=== PATIENT | male | born 1940 | race Caucasian/White ===

== ENCOUNTER → 2016-07-28 | Outpatient (REF) | payer MEDICARE ==
[2016-07-28 12:50] LABS: ALBUMIN 3.7 GM/DL (3.2-5.2); ALBUMIN/GLOBULIN RATIO 1.12 (1.00-1.93); ALKALINE PHOSPHATASE 60 U/L (45-117); ALT/SGPT 31 U/L (12-78); ANION GAP 9 MEQ/L (8-16); AST/SGOT 16 U/L (15-37); BILIRUBIN,TOTAL 0.7 MG/DL (0.2-1.0); BLOOD UREA NITROGEN 29 MG/DL (7-18); CALCIUM LEVEL 8.7 MG/DL (8.8-10.2); CARBON DIOXIDE LEVEL 29 MEQ/L (21-32); CHLORIDE LEVEL 102 MEQ/L (98-107); CHOLESTEROL LEVEL 101 MG/DL (<200); CREATININE FOR GFR 1.13 MG/DL (0.70-1.30); GLOMERULAR FILTRATION RATE > 60.0 (>42); GLUCOSE, FASTING 124 MG/DL (83-110); POTASSIUM SERUM 4.6 MEQ/L (3.5-5.1); SODIUM LEVEL 140 MEQ/L (136-145); TRIGLYCERIDES LEVEL 303 MG/DL (<150)
[2016-07-28 13:02] LABS: BASO # 0.1 K/mm3 (0.0-0.2); BASO % 1.6 % (0.0-1.0); EOS # 0.2 K/mm3 (0.0-0.50); LARGE UNSTAINED CELL # 0.1 K/mm3 (0.0-0.4); LARGE UNSTAINED CELL % 2.5 % (0.0-4.0); LYMPH # 1.5 K/mm3 (1.5-4.5); LYMPH % 27.3 % (24.0-44.0); MEAN CORPUSCULAR HGB CONC 35.6 g/dl (32.0-36.5); MEAN CORPUSCULAR VOLUME 87.2 fl (80.0-96.0); MONO # 0.6 K/mm3 (0.0-0.8); MONO % 11.1 % (0.0-5.0); NEUTROPHILS # 2.7 K/mm3 (1.8-7.7); NEUTROPHILS % 53.5 % (36.0-66.0); PLATELET COUNT, AUTOMATED 159 k/mm3 (150-450); RED CELL DISTRIBUTION WIDTH 12.7 % (11.5-14.5)
== END ==
LOC: M SFHCPLAZ 09:24
PROVIDERS: ATTEND Physician Assistant
DX: E11.9 Type 2 diabetes mellitus without complications (principal); I10 Essential (primary) hypertension; E78.5 Hyperlipidemia, unspecified

== ENCOUNTER 2016-09-13 20:01 | Emergency (ER) | payer MEDICARE ==
[~2016-09-13] VITALS: Ht 170.2 cm; Wt 97.7 kg
[2016-09-13] MEDS ORDERED: CRES20TA PO (20:13)
[2016-09-13] MEDS ORDERED: LISI40TAB PO (20:13)
[2016-09-13] MEDS ORDERED: INSUDET SC (20:13)
[2016-09-13] MEDS ORDERED: METF500T13 PO (20:13)
[2016-09-13] MEDS ORDERED: CARV6.25 PO (20:13)
[2016-09-13] MEDS ORDERED: OMEG100011 PO (20:13)
[2016-09-13] MEDS ORDERED: ASPI1TAB PO (20:13)
[2016-09-13] MEDS ORDERED: INSUR SC (20:13)
[2016-09-13] MEDS ORDERED: KEFL500C17 PO (21:27)
[2016-09-13 21:43] VITALS: BP 137/71
== END 2016-09-13 22:06 | disposition home or self-care (01) ==
LOC: M ED 20:01
DX: L02.215 Cutaneous abscess of perineum (principal); E11.9 Type 2 diabetes mellitus without complications; I10 Essential (primary) hypertension

== ENCOUNTER → 2016-10-23 | Outpatient (REF) | payer MEDICARE ==
[~2016-10-23] MED LIST: ASPI1TAB PO; CARV6.25 PO; CRES20TA PO; INSUDET SC; INSUR SC; KEFL500C17 PO; LISI40TAB PO; METF500T13 PO; OMEG100011 PO
[2016-10-23 16:22] LABS: BASO % 1.1 % (0.0-1.0); EOS # 0.2 K/mm3 (0.0-0.50); EOS % 4.5 % (0.0-3.0); LARGE UNSTAINED CELL # 0.1 K/mm3 (0.0-0.4); LARGE UNSTAINED CELL % 2.5 % (0.0-4.0); LYMPH # 1.5 K/mm3 (1.5-4.5); LYMPH % 29.8 % (24.0-44.0); MEAN CORPUSCULAR HEMOGLOBIN 32.1 pg (27.0-33.0); MEAN CORPUSCULAR HGB CONC 36.2 g/dl (32.0-36.5); MEAN CORPUSCULAR VOLUME 88.6 fl (80.0-96.0); MONO # 0.6 K/mm3 (0.0-0.8); MONO % 12.1 % (0.0-5.0); NEUTROPHILS # 2.3 K/mm3 (1.8-7.7); PLATELET COUNT, AUTOMATED 170 k/mm3 (150-450); RED CELL DISTRIBUTION WIDTH 12.7 % (11.5-14.5); WHITE BLOOD COUNT 4.6 K/mm3 (4.0-10.0)
[2016-10-23 16:28] LABS: ALBUMIN 3.9 GM/DL (3.2-5.2); ALBUMIN/GLOBULIN RATIO 1.22 (1.00-1.93); ALKALINE PHOSPHATASE 53 U/L (45-117); ALT/SGPT 37 U/L (12-78); ANION GAP 8 MEQ/L (8-16); AST/SGOT 20 U/L (15-37); BILIRUBIN,TOTAL 0.6 MG/DL (0.2-1.0); BLOOD UREA NITROGEN 24 MG/DL (7-18); CARBON DIOXIDE LEVEL 30 MEQ/L (21-32); CHLORIDE LEVEL 104 MEQ/L (98-107); CHOLESTEROL LEVEL 97 MG/DL (<200); CREATININE FOR GFR 1.01 MG/DL (0.70-1.30); GLOMERULAR FILTRATION RATE > 60.0 (>42); GLUCOSE, FASTING 125 MG/DL (83-110); POTASSIUM SERUM 4.4 MEQ/L (3.5-5.1); SODIUM LEVEL 142 MEQ/L (136-145); TOTAL PROTEIN 7.1 GM/DL (6.4-8.2); TRIGLYCERIDES LEVEL 189 MG/DL (<150)
== END ==
LOC: M SFHCSACK 09:37
PROVIDERS: ATTEND Physician Assistant
DX: I10 Essential (primary) hypertension (principal); E11.9 Type 2 diabetes mellitus without complications; E78.5 Hyperlipidemia, unspecified; Z13.21 Encounter for screening for nutritional disorder; E55.9 Vitamin D deficiency, unspecified; Z79.82 Long term (current) use of aspirin; Z79.899 Other long term (current) drug therapy; Z79.4 Long term (current) use of insulin

== ENCOUNTER → 2017-08-01 | Outpatient (REF) | payer MEDICARE ==
[2017-08-01 12:41] LABS: BASO # 0.1 10^3/uL (0.0-0.2); EOS # 0.2 10^3/uL (0.0-0.50); EOS % 3.3 % (0.0-3.0); HEMATOCRIT 39.6 % (42.0-52.0); HEMOGLOBIN 13.4 g/dl (13.5-17.5); IMMATURE GRANULOCYTE % 0.4 % (0-3.0); LYMPH # 1.4 10^3/uL (1.5-4.5); LYMPH % 26.1 % (24.0-44.0); MEAN CORPUSCULAR HGB CONC 33.8 g/dl (32.0-36.5); MEAN CORPUSCULAR VOLUME 88.8 fl (80.0-96.0); MONO # 0.7 10^3/uL (0.0-0.8); MONO % 13.9 % (0.0-5.0); NEUTROPHILS # 2.9 10^3/uL (1.8-7.7); NEUTROPHILS % 55.3 % (36.0-66.0); PLATELET COUNT, AUTOMATED 150 10^3/uL (150-450); RED BLOOD COUNT 4.46 10^6/uL (4.30-6.10); RED CELL DISTRIBUTION WIDTH 12.7 % (11.5-14.5); WHITE BLOOD COUNT 5.2 10^3/uL (4.0-10.0)
[2017-08-01 12:48] LABS: ALBUMIN 3.6 GM/DL (3.2-5.2); ALBUMIN/GLOBULIN RATIO 1.16 (1.00-1.93); ALKALINE PHOSPHATASE 59 U/L (45-117); ALT/SGPT 31 U/L (12-78); ANION GAP 8 MEQ/L (8-16); AST/SGOT 17 U/L (7-37); BILIRUBIN,TOTAL 0.8 MG/DL (0.2-1.0); BLOOD UREA NITROGEN 21 MG/DL (7-18); CALCIUM LEVEL 8.6 MG/DL (8.8-10.2); CARBON DIOXIDE LEVEL 28 MEQ/L (21-32); CHLORIDE LEVEL 105 MEQ/L (98-107); CHOLESTEROL LEVEL 94 MG/DL (<200); CHOLESTEROL RISK RATIO 2.764 (<5); CREATININE FOR GFR 0.99 MG/DL (0.70-1.30); GLOMERULAR FILTRATION RATE > 60.0 (>42); GLUCOSE, FASTING 199 MG/DL (70-100); HDL CHOLESTEROL 34 MG/DL (>40); LDL CHOLESTEROL 4.2 MG/DL (<100); NON-HDL-C 60 MG/DL; POTASSIUM SERUM 4.5 MEQ/L (3.5-5.1); SODIUM LEVEL 141 MEQ/L (136-145); TOTAL PROTEIN 6.7 GM/DL (6.4-8.2); TRIGLYCERIDES LEVEL 279 MG/DL (<150)
[2017-08-01 12:59] LABS: ESTIMATED AVERAGE GLUCOSE 192 MG/DL (60-110); HEMOGLOBIN A1c 8.3 %
[2017-08-01 13:20] LABS: TOTAL 25(OH) VITAMIN D 38.9 NG/ML (30.0-100.0)
[2017-08-01 13:26] LABS: MAU/CREAT RATIO 79.6 MCG/MG (0.0-30.0)
== END ==
LOC: M SFHCADAM 09:24
DX: D64.9 Anemia, unspecified (principal); E11.9 Type 2 diabetes mellitus without complications; E78.5 Hyperlipidemia, unspecified; E55.9 Vitamin D deficiency, unspecified
CPT/HCPCS: 80053

== ENCOUNTER → 2018-05-31 | Outpatient (REF) | payer MEDICARE ==
[~2018-05-31] MED LIST changes: -ASPI1TAB PO; +ASPI81TA26 PO; -CRES20TA PO; +CRES20TA2 PO; +LISI40TA PO; -LISI40TAB PO
[2018-05-31 14:25] LABS: BASO # 0.1 10^3/uL (0.0-0.2); BASO % 1.2 % (0.0-1.0); EOS # 0.2 10^3/uL (0.0-0.50); EOS % 3.4 % (0.0-3.0); HEMATOCRIT 43.9 % (42.0-52.0); HEMOGLOBIN 14.3 g/dl (13.5-17.5); LYMPH # 1.5 10^3/uL (1.5-4.5); LYMPH % 23.3 % (24.0-44.0); MEAN CORPUSCULAR HEMOGLOBIN 28.6 pg (27.0-33.0); MEAN CORPUSCULAR HGB CONC 32.6 g/dl (32.0-36.5); MEAN CORPUSCULAR VOLUME 87.8 fl (80.0-96.0); MONO # 0.9 10^3/uL (0.0-0.8); MONO % 13.9 % (0.0-5.0); NEUTROPHILS # 3.8 10^3/uL (1.8-7.7); PLATELET COUNT, AUTOMATED 170 10^3/uL (150-450); WHITE BLOOD COUNT 6.5 10^3/uL (4.0-10.0)
[2018-05-31 14:53] LABS: ALBUMIN 4.1 GM/DL (3.2-5.2); ALT/SGPT 28 U/L (12-78); BILIRUBIN,TOTAL 0.8 MG/DL (0.2-1.0); BLOOD UREA NITROGEN 26 MG/DL (7-18); CARBON DIOXIDE LEVEL 29 MEQ/L (21-32); CHLORIDE LEVEL 104 MEQ/L (98-107); CHOLESTEROL LEVEL 128 MG/DL (<200); CHOLESTEROL RISK RATIO 3.555 (<5); CREATININE FOR GFR 1.14 MG/DL (0.70-1.30); GLOMERULAR FILTRATION RATE > 60.0 (>42); GLUCOSE, FASTING 146 MG/DL (70-100); HDL CHOLESTEROL 36 MG/DL (>40); LDL CHOLESTEROL 45 MG/DL (<100); NON-HDL-C 92 MG/DL; POTASSIUM SERUM 4.5 MEQ/L (3.5-5.1); SODIUM LEVEL 140 MEQ/L (136-145); TOTAL PROTEIN 7.2 GM/DL (6.4-8.2); TRIGLYCERIDES LEVEL 233 MG/DL (<150)
[2018-05-31 14:59] LABS: TOTAL 25(OH) VITAMIN D 52.2 NG/ML (30.0-100.0)
[2018-05-31 15:16] LABS: HEMOGLOBIN A1c 8.3 %
== END ==
LOC: M SFHCSACK 09:09
PROVIDERS: ATTEND Physician Assistant
DX: D64.9 Anemia, unspecified (principal); E78.5 Hyperlipidemia, unspecified; E11.9 Type 2 diabetes mellitus without complications; E55.9 Vitamin D deficiency, unspecified; E66.9 Obesity, unspecified; Z68.36 Body mass index [BMI] 36.0-36.9, adult

== ENCOUNTER → 2018-06-05 | Outpatient (CLI) | payer MEDICARE ==
--- NOTE | 2018-06-05 15:13 | REP ---
BILATERAL HIPS, AP PELVIS, FIVE VIEWS: HISTORY: Hip pain. RIGHT HIP: There is no acute fracture or dislocation. There is moderate narrowing of the joint space with associated sclerosis and osteophyte formation. IMPRESSION: Degenerative change as described above. LEFT HIP: The patient is status post left total hip replacement. There is no acute fracture or dislocation. IMPRESSION: The patient is status post left total hip replacement. Electronically Signed by Dayton Alas MD 06/05/2018 03:26 P
--- NOTE | 2018-06-05 15:13 | REP ---
LUMBAR SPINE, FIVE VIEWS: HISTORY: Back pain. There is no acute fracture. The lumbar intervertebral discs are decreased in height consistent with disc degeneration. Osteophytes are present throughout the lumbar spine. There is narrowing of the right L4-5 and L5-S1 facet joints and left L5-S1 facet joint. There is sclerosis at the right L4-5 facet joint. There are 3 mm of grade 1 spondylolisthesis of L4 on L5. IMPRESSION: Degenerative change as described above. Electronically Signed by Dayton Alas MD 06/05/2018 03:26 P
== END ==
LOC: M ADAMS 13:44
PROVIDERS: ATTEND Physician Assistant
DX: M25.78 Osteophyte, vertebrae (principal); M51.36 Other intervertebral disc degeneration, lumbar region; M51.37 Other intervertebral disc degeneration, lumbosacral region; M43.16 Spondylolisthesis, lumbar region; M25.751 Osteophyte, right hip; M16.11 Unilateral primary osteoarthritis, right hip; Z96.642 Presence of left artificial hip joint

== ENCOUNTER 2018-09-24 20:22 | Emergency (ER) | payer MEDICARE ==
[~2018-09-24] VITALS: Ht 167.6 cm; Wt 105.0 kg
[2018-09-24] MEDS ORDERED: ACETAMINOPHEN TAB 650MG DOSE (2X325MG) PO ONE (20:45)
[2018-09-24 21:36] LABS: BASO % 0.3 % (0.0-1.0); EOS # 0.3 10^3/uL (0.0-0.50); EOS % 4.1 % (0.0-3.0); HEMOGLOBIN 15.4 g/dl (13.5-17.5); LYMPH # 0.4 10^3/uL (1.5-4.5); LYMPH % 6.1 % (24.0-44.0); MEAN CORPUSCULAR HEMOGLOBIN 30.4 pg (27.0-33.0); MEAN CORPUSCULAR HGB CONC 34.2 g/dl (32.0-36.5); MEAN CORPUSCULAR VOLUME 88.8 fl (80.0-96.0); NEUTROPHILS # 4.5 10^3/uL (1.8-7.7); NEUTROPHILS % 73.2 % (36.0-66.0); PLATELET COUNT, AUTOMATED 147 10^3/uL (150-450); RED BLOOD COUNT 5.07 10^6/uL (4.30-6.10); WHITE BLOOD COUNT 6.1 10^3/uL (4.0-10.0)
[2018-09-24 22:09] LABS: BILIRUBIN,DIRECT 0.2 MG/DL (0.0-0.2); BILIRUBIN,TOTAL 0.5 MG/DL (0.2-1.0); CALCIUM LEVEL 8.8 MG/DL (8.8-10.2); CK-MB VALUE MASS 1.7 NG/ML (<3.6); CREATININE FOR GFR 1.95 MG/DL (0.70-1.30); GLOMERULAR FILTRATION RATE 35.8 (>42); MB/CK RELATIVE INDEX 0.43 (< OR =4); POTASSIUM SERUM 4.6 MEQ/L (3.5-5.1); THYROID STIMULATING HORMONE 1.88 uIU/ML (0.358-3.740); TOTAL PROTEIN 7.8 GM/DL (6.4-8.2); TROPONIN I 0.02 NG/ML (< 0.10)
[2018-09-24] MEDS ORDERED: NS 1,000 ML IV ONE (23:00)
[2018-09-24] MEDS ORDERED: AZITHROMYCIN 250 MG TAB PO ONE (23:00)
[2018-09-24] MEDS ORDERED: cefTRIAXone SOD 1 GM in D5W MINI-BAG PLUS 50 ML IV ONE (23:00)
[2018-09-24] MEDS ORDERED: SULF1TAB93 PO (23:40)
[2018-09-25] MEDS ORDERED: DOXY100C37 PO (00:15)
[2018-09-25 01:00] VITALS: BP 160/79
--- NOTE | 2018-09-25 08:14 | REP ---
The PA and lateral chest: There are no comparisons. The right hilus appears enlarged. Lung mantilla otherwise clear. Cardiac size is normal. The left hilus, mediastinum, skeletal structures are unremarkable. Impression: Enlarged right hilus. Recommend CT follow-up. Otherwise, negative PA and lateral chest. Electronically Signed by Donovan Woodall MD 09/25/2018 08:06 A
--- NOTE | 2018-09-25 10:39 | ED PDOC ---
Post-Departure Follow-Up tray ruiz faxed formal report of cxr for fu Avi Mai MD Sep 25, 2018 10:39
--- NOTE | 2018-09-26 13:21 | ECGEPIP ---
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
== END 2018-09-25 01:23 | disposition home or self-care (01) ==
LOC: M ED 20:22
DX: J18.9 Pneumonia, unspecified organism (principal); I10 Essential (primary) hypertension; E11.9 Type 2 diabetes mellitus without complications; Z96.649 Presence of unspecified artificial hip joint; Z87.891 Personal history of nicotine dependence; Z79.899 Other long term (current) drug therapy; Z79.4 Long term (current) use of insulin; Z79.2 Long term (current) use of antibiotics
CPT/HCPCS: 71046; 80048; 80076; 81001; 82550; 82553; 83605; 84443; 84484; 85025; 87040; 93005; 96365; 96366; 99284; J0696

== ENCOUNTER 2018-09-26 15:06 | Emergency (ER) | payer MEDICARE ==
[~2018-09-26] VITALS: Ht 170.2 cm; Wt 103.5 kg
[~2018-09-26 15:06] MED LIST changes: +DOXY100C37 PO; +SULF1TAB93 PO
[2018-09-26] MEDS ORDERED: diphenhydrAMINE INJ 50MG/ML VIAL (J1200) IV STA (17:42)
[2018-09-26] MEDS ORDERED: NS 1,000 ML IV ONE ×2 (17:45→20:30)
[2018-09-26] MEDS ORDERED: ACETAMINOPHEN 325 MG TAB PO ONE (18:00)
[2018-09-26 18:25] LABS: BASO % 0.4 % (0.0-1.0); EOS # 0.3 10^3/uL (0.0-0.50); EOS % 5.3 % (0.0-3.0); HEMOGLOBIN 14.9 g/dl (13.5-17.5); LYMPH # 0.6 10^3/uL (1.5-4.5); LYMPH % 10.2 % (24.0-44.0); MEAN CORPUSCULAR HEMOGLOBIN 30.9 pg (27.0-33.0); MEAN CORPUSCULAR HGB CONC 34.7 g/dl (32.0-36.5); MEAN CORPUSCULAR VOLUME 89.2 fl (80.0-96.0); MONO # 0.6 10^3/uL (0.0-0.8); MONO % 11.2 % (0.0-5.0); NEUTROPHILS # 4.1 10^3/uL (1.8-7.7); NEUTROPHILS % 72.5 % (36.0-66.0); PLATELET COUNT, AUTOMATED 107 10^3/uL (150-450); RED BLOOD COUNT 4.82 10^6/uL (4.30-6.10); WHITE BLOOD COUNT 5.6 10^3/uL (4.0-10.0)
[2018-09-26 18:41] LABS: PROTHROMBIN TIME 12.9 SECONDS (11.8-14.0)
[2018-09-26 18:55] LABS: ALBUMIN 3.6 GM/DL (3.2-5.2); BILIRUBIN,DIRECT 0.2 MG/DL (0.0-0.2); BILIRUBIN,TOTAL 0.4 MG/DL (0.2-1.0); C REACTIVE PROTEIN QUANTITATIV 8.99 MG/DL (0.00-0.30); CREATININE FOR GFR 1.72 MG/DL (0.70-1.30); GLOMERULAR FILTRATION RATE 41.4 (>42); POTASSIUM SERUM 4.1 MEQ/L (3.5-5.1); TOTAL PROTEIN 7.6 GM/DL (6.4-8.2)
--- NOTE | 2018-09-26 18:58 | REPVR ---
EXAM: CT Chest Without Contrast EXAM DATE/TIME: 09/26/2018 6:15 PM CLINICAL HISTORY: 78 years old, male; Abnormal findings; Abnormal radiologic exam of lung or chest; Additional info: ? Pneumonia on cxr, worsening fevers TECHNIQUE: Imaging protocol: Computed tomography images of the chest without contrast. 3D rendering: MIP reconstructed images were created and reviewed. Radiation optimization: All CT scans at this facility use at least one of these dose optimization techniques: automated exposure control; mA and/or kV adjustment per patient size (includes targeted exams where dose is matched to clinical indication); or iterative reconstruction. COMPARISON: CR Chest, 2 view PA, Lat 09/24/2018 10:26 PM FINDINGS: Lungs: Unremarkable. No consolidation. No masses. Pleural space: Unremarkable. No pneumothorax. No pleural effusion. Heart: Unremarkable. No cardiomegaly. No pericardial effusion. Pulmonary arteries: Prominence of the pulmonary hilar regions related to prominent and lobar pulmonary arteries. Aorta: The aorta demonstrates mild atherosclerotic calcification. Lymph nodes: Small mediastinal lymph nodes likely postinflammatory. Bones/joints: Degenerative arthropathy both glenohumeral joints.The spine demonstrates mild degenerative changes. Soft tissues: Unremarkable. IMPRESSION: No acute findings. Electronically signed by: Daren Terrazas On 09/26/2018 18:58:00 PM
[2018-09-26 19:02] LABS: ERYTHROCYTE SEDIMENTATION RATE 39 mm/hr (0-20)
[2018-09-26] MEDS ORDERED: IBUPROFEN 600 MG TAB PO ONE (20:30)
[2018-09-26] MEDS ORDERED: methylPREDNISolone INJ 125 MG/2 ML VIAL (J2930) IV ONE (21:30)
[2018-09-26 22:12] VITALS: BP 135/67
== END 2018-09-26 22:14 | disposition home or self-care (01) ==
LOC: M ED 15:06
DX: E86.0 Dehydration (principal); R21 Rash and other nonspecific skin eruption; N17.9 Acute kidney failure, unspecified; Z79.4 Long term (current) use of insulin; Z79.899 Other long term (current) drug therapy
CPT/HCPCS: 71250; 80048; 80076; 81001; 85025; 85610; 85652; 85730; 86140; 96374; 96375; 99284; J1200; J2930

== ENCOUNTER → 2018-09-30 | Outpatient (REF) | payer MEDICARE ==
[2018-09-30 13:30] LABS: BASO # 0.1 10^3/uL (0.0-0.2); EOS # 0.4 10^3/uL (0.0-0.50); EOS % 6.6 % (0.0-3.0); HEMATOCRIT 37.3 % (42.0-52.0); HEMOGLOBIN 12.7 g/dl (13.5-17.5); LYMPH # 1.4 10^3/uL (1.5-4.5); MEAN CORPUSCULAR HEMOGLOBIN 30.5 pg (27.0-33.0); MEAN CORPUSCULAR VOLUME 89.7 fl (80.0-96.0); MONO # 0.6 10^3/uL (0.0-0.8); MONO % 9.8 % (0.0-5.0); NEUTROPHILS # 3.4 10^3/uL (1.8-7.7); NEUTROPHILS % 58.1 % (36.0-66.0); PLATELET COUNT, AUTOMATED 147 10^3/uL (150-450); RED BLOOD COUNT 4.16 10^6/uL (4.30-6.10); WHITE BLOOD COUNT 5.8 10^3/uL (4.0-10.0)
[2018-09-30 13:43] LABS: ALT/SGPT 38 U/L (12-78); BILIRUBIN,TOTAL 0.6 MG/DL (0.2-1.0); BLOOD UREA NITROGEN 23 MG/DL (7-18); CALCIUM LEVEL 8.4 MG/DL (8.8-10.2); CARBON DIOXIDE LEVEL 23 MEQ/L (21-32); CHLORIDE LEVEL 103 MEQ/L (98-107); CHOLESTEROL LEVEL 76 MG/DL (<200); CHOLESTEROL RISK RATIO 3.166 (<5); CREATININE FOR GFR 1.18 MG/DL (0.70-1.30); GLOMERULAR FILTRATION RATE > 60.0 (>42); GLUCOSE, FASTING 380 MG/DL (70-100); HDL CHOLESTEROL 24 MG/DL (>40); NON-HDL-C 52 MG/DL; POTASSIUM SERUM 4.6 MEQ/L (3.5-5.1); SODIUM LEVEL 133 MEQ/L (136-145); TOTAL PROTEIN 6.6 GM/DL (6.4-8.2); TRIGLYCERIDES LEVEL 410 MG/DL (<150)
[2018-09-30 13:44] LABS: TOTAL 25(OH) VITAMIN D 34.3 NG/ML (30.0-100.0)
[2018-09-30 13:57] LABS: HEMOGLOBIN A1c 9.7 %
[2018-09-30 14:04] LABS: CREATININE, URINE 76.2 MG/DL; MAU/CREAT RATIO 165.3 MCG/MG (0.0-30.0)
== END ==
LOC: M SFHCADAM 09:29
PROVIDERS: ATTEND Physician Assistant
DX: I10 Essential (primary) hypertension (principal); E78.5 Hyperlipidemia, unspecified; E11.9 Type 2 diabetes mellitus without complications; Z12.5 Encounter for screening for malignant neoplasm of prostate; E29.1 Testicular hypofunction; E55.9 Vitamin D deficiency, unspecified
CPT/HCPCS: 80053; 80061; 82043; 82306; 83036; 84402; 84403; 85025; G0103

== ENCOUNTER → 2018-10-14 | Outpatient (REF) | payer MEDICARE | LOC: M SFHCPLAZ 19:20 | PROVIDERS: ATTEND Dermatology | DX: C44.629 Squamous cell carcinoma of skin of left upper limb, including shoulder (principal) ==

== ENCOUNTER → 2019-08-06 | Outpatient (REF) | payer MEDICARE ==
[2019-08-06 14:57] LABS: HEMOGLOBIN 14.1 g/dl (13.5-17.5); MEAN CORPUSCULAR HEMOGLOBIN 30.2 pg (27.0-33.0); MEAN CORPUSCULAR HGB CONC 33.6 g/dl (32.0-36.5); MEAN CORPUSCULAR VOLUME 89.9 fl (80.0-96.0); PLATELET COUNT, AUTOMATED 168 10^3/uL (150-450); RED BLOOD COUNT 4.67 10^6/uL (4.30-6.10); WHITE BLOOD COUNT 5.6 10^3/uL (4.0-10.0)
[2019-08-06 15:03] LABS: ALBUMIN 3.5 GM/DL (3.2-5.2); ALT/SGPT 42 U/L (12-78); BILIRUBIN,TOTAL 0.8 MG/DL (0.2-1.0); BLOOD UREA NITROGEN 19 MG/DL (7-18); CALCIUM LEVEL 8.9 MG/DL (8.8-10.2); CARBON DIOXIDE LEVEL 28 MEQ/L (21-32); CHLORIDE LEVEL 103 MEQ/L (98-107); CHOLESTEROL LEVEL 125 MG/DL (<200); CHOLESTEROL RISK RATIO 3.787 (<5); CREATININE FOR GFR 1.12 MG/DL (0.70-1.30); GLOMERULAR FILTRATION RATE > 60.0 (>42); GLUCOSE, FASTING 217 MG/DL (70-100); HDL CHOLESTEROL 33 MG/DL (>40); LDL CHOLESTEROL 28 MG/DL (<100); NON-HDL-C 92 MG/DL; POTASSIUM SERUM 4.6 MEQ/L (3.5-5.1); SODIUM LEVEL 135 MEQ/L (136-145); TRIGLYCERIDES LEVEL 318 MG/DL (<150)
[2019-08-06 15:12] LABS: TOTAL 25(OH) VITAMIN D 30.8 NG/ML (30.0-100.0)
[2019-08-06 15:23] LABS: HEMOGLOBIN A1c 11.1 %
[2019-08-06 15:32] LABS: MAU/CREAT RATIO 178.1 MCG/MG (0.0-30.0)
[2019-08-08 19:13] LABS: TESTOSTERONE FREE (DIRECT) 6.1 pg/mL (6.6-18.1)
== END ==
LOC: M SFHCPLAZ 10:25 → M SFHCADAM 10:26
PROVIDERS: ATTEND Physician Assistant
DX: I10 Essential (primary) hypertension (principal); E78.5 Hyperlipidemia, unspecified; E11.9 Type 2 diabetes mellitus without complications; E55.9 Vitamin D deficiency, unspecified; R40.0 Somnolence

== ENCOUNTER → 2020-08-10 | Outpatient (REF) | payer MEDICARE ==
[~2020-08-10] MED LIST changes: +BACTDSTA PO; -DOXY100C37 PO; +DOXY1CAP62 PO; -LISI40TA PO; +LISI40TA4 PO; -SULF1TAB93 PO
[2020-08-10 14:08] LABS: ALBUMIN 3.5 GM/DL (3.2-5.2); ALT/SGPT 29 U/L (12-78); BILIRUBIN,TOTAL 0.5 MG/DL (0.2-1.0); BLOOD UREA NITROGEN 22 MG/DL (7-18); CARBON DIOXIDE LEVEL 27 MEQ/L (21-32); CHLORIDE LEVEL 104 MEQ/L (98-107); CHOLESTEROL LEVEL 157 MG/DL (<200); CHOLESTEROL RISK RATIO 4.485 (<5); CREATININE FOR GFR 1.15 MG/DL (0.70-1.30); GLOMERULAR FILTRATION RATE > 60.0 (>42); GLUCOSE, FASTING 196 MG/DL (70-100); HDL CHOLESTEROL 35 MG/DL (>40); LDL CHOLESTEROL 60 MG/DL (<100); NON-HDL-C 122 MG/DL; POTASSIUM SERUM 4.6 MEQ/L (3.5-5.1); SODIUM LEVEL 139 MEQ/L (136-145); TOTAL PROTEIN 6.8 GM/DL (6.4-8.2); TRIGLYCERIDES LEVEL 308 MG/DL (<150)
[2020-08-10 14:12] LABS: TESTOSTERONE 88 NG/DL (241-827); TOTAL 25(OH) VITAMIN D 19.1 NG/ML (30.0-100.0)
[2020-08-10 14:16] LABS: MAU/CREAT RATIO 162.4 MCG/MG (0.0-30.0)
== END ==
LOC: M LABDRWAD 12:40
PROVIDERS: ATTEND Nurse Practitioner Family
DX: E78.2 Mixed hyperlipidemia (principal); E11.65 Type 2 diabetes mellitus with hyperglycemia; E55.9 Vitamin D deficiency, unspecified; Z79.899 Other long term (current) drug therapy